=== PATIENT | female | born 1995 | race Caucasian/White ===

== ENCOUNTER 2016-10-28 15:58 | Emergency (ER) | payer OTHER ==
[~2016-10-28] VITALS: Ht 172.7 cm; Wt 79.2 kg
[~2016-10-28 15:58] MED LIST: IBUPROFEN600 MG PO
[2016-10-28 16:31] VITALS: BP 138/80
[2016-10-28 18:46] LABS: URINE BLOOD DIPSTICK LARGE (NEGATIVE); URINE CLARITY CLEAR; URINE COLOR YELLOW; URINE GLUCOSE - DIPSTICK NEGATIVE (NEGATIVE); URINE KETONE >=80 mg/dL (NEGATIVE); URINE LEUK ESTERASE NEGATIVE (NEGATIVE); URINE NITRITE - DIPSTICK NEGATIVE (Negative); URINE PROTEIN - DIPSTICK TRACE mg/dL (NEG-TRACE); URINE SPECIFIC GRAVITY >=1.030; URINE UROBILINOGEN - DIPSTICK 0.2 E.U./dL (0.2)
[2016-10-28 18:51] LABS: URINE BILIRUBIN - DIPSTICK SMALL (NEGATIVE); URINE RBC TNTC RBC/hpf (0-5); URINE SQUAMOUS EPITHELIAL CELL FEW EPI/hpf (0-FEW)
== END 2016-10-28 18:33 | disposition left against medical advice (07) | DRG 761 ==
LOC: ED 15:58
PROVIDERS: Emergency Medicine
DX: N93.9 Abnormal uterine and vaginal bleeding, unspecified (principal); Z91.19 Patient's noncompliance with other medical treatment and regimen

== ENCOUNTER 2017-06-05 18:40 | Emergency (ER) | payer OTHER ==
[~2017-06-05] VITALS: Ht 172.7 cm; Wt 77.0 kg
[2017-06-05 19:37] LABS: INFLUENZA A NONE DETECTED (NONE DETECT); INFLUENZA B NONE DETECTED (NONE DETECT)
[2017-06-05] MEDS ORDERED: AMOXICILLIN500 MG PO (19:41)
[2017-06-05] MEDS ORDERED: CLARITIN10 M1 PO (19:41)
[2017-06-05 19:45] VITALS: BP 120/69
== END 2017-06-05 19:45 | disposition home or self-care (01) | DRG 153 ==
LOC: ED 18:40
PROVIDERS: Emergency Medicine
DX: J02.9 Acute pharyngitis, unspecified (principal)

== ENCOUNTER 2020-10-21 12:45 | Emergency (ER) | payer OTHER ==
[~2020-10-21] VITALS: Ht 175.3 cm; Wt 84.0 kg
[~2020-10-21 12:45] MED LIST changes: +AMOXICILLIN500 MG PO; +CLARITIN10 M1 PO
[2020-10-21 14:27] LABS: IMMATURE GRANULOCYTES 0.4 % (0.0-5.0); MEAN CORPUSCULAR HGB 31.4 pG CALC (26.0-32.0); MEAN CORPUSCULAR HGB CONC 32.7 g/dL CAL (32.0-36.0); NEUT# 5.2 thou/uL (2.00-7.15); RED BLOOD COUNT 4.36 mill/uL (4.20-5.60); RED CELL DISTRI WIDTH 12.5 % (11.5-15.5)
[2020-10-21 14:34] LABS: HEMATOCRIT 41.9 % (37.0-47.0); HEMOGLOBIN 13.7 g/dl (12.0-16.0); MEAN CELL VOLUME 96.1 fL CALC (80.0-100.0)
[2020-10-21 14:45] LABS: ALKALINE PHOSPHATASE 71 u/l (38-126); BILIRUBIN, TOTAL 0.5 mg/dL (0.0-1.4); BUN 14 mg/dL (7-17); BUN/CREATININE RATIO 17 (12-20 (CALC)); CHLORIDE 106 mmol/l (95-108); CREATININE 0.8 mg/dL (0.5-1.0); GFR > 60 ML/MIN (>=60 (CALC)); GFR FOR AFR.AMER. > 60 ML/MIN (>=60 (CALC)); POTASSIUM 3.7 mmol/l (3.5-5.1); SGOT/AST 20 u/l (14-36); SODIUM 141 mmol/l (137-146)
[2020-10-21 14:48] LABS: ALBUMIN 4.6 g/dL (3.2-5.0); ANION GAP 14 (6-22 (CALC)); CARBON DIOXIDE 25 mmol/l (22-30); TOTAL PROTEIN 8.6 g/dL (6.3-8.2)
[2020-10-21 15:01] LABS: BETA-HCG, QUANT(RESULT NUMBER) <2 mIU/mL
[2020-10-21 15:16] LABS: URINE BLOOD DIPSTICK LARGE (NEGATIVE); URINE COLOR YELLOW; URINE GLUCOSE - DIPSTICK NEGATIVE (NEGATIVE); URINE KETONE 40 mg/dL (NEGATIVE); URINE PH 5.5 (4.5-8.0); URINE PROTEIN - DIPSTICK NEGATIVE (NEG-TRACE); URINE SPECIFIC GRAVITY >=1.030
[2020-10-21 15:18] LABS: URINE BILIRUBIN - DIPSTICK NEGATIVE (NEGATIVE); URINE LEUK ESTERASE SMALL (NEGATIVE); URINE NITRITE - DIPSTICK NEGATIVE (Negative)
[2020-10-21 15:28] LABS: URINE SQUAMOUS EPITHELIAL CELL FEW EPI/hpf (0-FEW)
[2020-10-21] MEDS ORDERED: NITROFURANTN100 M2 PO (16:14)
[2020-10-21 16:45] VITALS: BP 159/77
== END 2020-10-21 16:45 | disposition home or self-care (01) ==
LOC: ED 12:45
PROVIDERS: Family Medicine
DX: N93.9 Abnormal uterine and vaginal bleeding, unspecified (principal); N39.0 Urinary tract infection, site not specified